=== PATIENT | female | born 1990 | race Caucasian/White ===

== ENCOUNTER 2020-04-30 14:08 | Inpatient (IN) | payer OTHER ==
[~2020-04-30] VITALS: Ht 165.1 cm; Wt 87.1 kg
--- NOTE | ~2020-04-30 | OR ---
[facility] [address] [place] [address] [place] [address] Draft DATE OF OPERATION: 05/06/2020 SURGEON: Kimberley Royal MD STRUCTURAL DRAFTSMAN: Michael Gilmore MD. PREOPERATIVE DIAGNOSES: Term , herpes simplex virus prodrome. POSTOPERATIVE DIAGNOSES: Term , herpes simplex virus prodrome, delivered. PROCEDURE: Primary section with low transverse incision. ANESTHESIA: Spinal. ESTIMATED BLOOD LOSS: 500 mL. DRAINS: Villgeas catheter. INDICATIONS AND FINDINGS: The patient is a 29-year-old female, 2, para 0, SAB 1, admitted at 39 and 4/7th weeks for primary section. The patient has had prodrome type symptoms for the last month, so no obvious outbreak. She has been on Valtrex. Given the uncertainty with the possible prodrome, she desired primary section. At the time of surgery, she was delivered of a little girl via lower segment transverse uterine incision from the ROT position with Apgars of 8 and 9 and weight of 7 pounds. The uterus, tubes, ovaries, and placenta appeared normal. DESCRIPTION OF PROCEDURE: The patient was prepped and draped in the supine position. A Pfannenstiel skin incision was then made after she was prepped and draped. The incision was carried down through the fascia. The incision was extended laterally. The inferior and superior fascial flaps were then created. The muscles were bluntly divided and the peritoneum opened sharply and the incision extended superiorly and inferiorly. The Mark retractor was PATIENT NAME: JHON WOLFE OPERATIVE REPORT DATE OF : [birth year] REPORT #: [id number] PHYSICIAN: KIMBERLEY ROYAL MD PCP: SHANE MEDINA REPORT IS CONFIDENTIAL AND NOT TO BE RELEASED WITHOUT AUTHORIZATION [facility] [address] [place], [place] [address] Draft placed. The uterine incision was made at the upper aspect of the peritoneal reflection. The baby was delivered with the above findings and handed off to the pediatric staff in attendance. Cord blood was obtained. The placenta was removed manually and the uterus explored with a lap tape assuring no remaining fragments. The edges of the incision were identified and the uterus was closed in 2 layers using 0 Monocryl. The first layer was a running locking stitch and the second was a vertical imbricating stitch. Additional [id number] was required in the center for control of bleeding. The abdomen was then copiously irrigated, inspected and bleeding points on the peritoneal edge were controlled with cautery. The retractor was removed and the peritoneum identified. An ACell graft was laid over the lower segment to aid in healing. The peritoneum was then closed with a running suture of 3-0 Vicryl. The muscles were brought together with interrupted sutures of 0 Vicryl. Bleeding points were controlled with cautery. This layer was also irrigated and inspected and hemostasis was noted. The ACell powder was sprinkled over the muscles to aid in healing. The fascia was then closed from each angle to the midline with a running suture of 0 Vicryl. The subcu space was examined and bleeding points controlled with the cautery. The deep space was closed with interrupted sutures of 3-0 Vicryl. The skin was closed with tk. All sponge and needle counts were correct. She tolerated the procedure well and was taken to the recovery room in good condition. MD JACINTO Marroquin/ALLIEL /[id number] cc: Michael Gilmore MD Copies: MICHAEL GILMORE MD ~ PATIENT NAME: JHON WOLFE OPERATIVE REPORT DATE OF : [birth year] REPORT #: [id number] PHYSICIAN: KIMBERLEY ROYAL MD PCP: SHANE MEDINA REPORT IS CONFIDENTIAL AND NOT TO BE RELEASED WITHOUT AUTHORIZATION
[~2020-04-30 14:08] MED LIST: DOXYCYCLINE HY100 MG PO; MOTRIN IB200 MG PO; PRENATAL TABLE1 EAC1 PO
--- NOTE | 2020-05-06 12:06 | NUR ---
05/06/20 1206 Sheets,Emily 1147 PT ARRIVED TO ROOM AND DENIES PAIN AND NAUSEA. SPINAL LEVEL T-6 AND PT UNABLE TO MOVE LEGS, PT DENIES SOB. IV INFUSING LR WITH 20 OF PIT, SITE WNL. FUNDAL CHECK AND SPINAL LEVEL EDUCATION GIVEN.
--- NOTE | 2020-05-07 07:53 | PR ---
[facility] [address] [facility] [place], [place] [address] Signed PP Progress Notes Datetime Report Generated by CPJessika: 05/07/2020 07:52 SUBJECTIVE: [id number] Pain: Within Normal Limits Pain Comments: vertigo resolved Nausea/Vomiting: Denies Flatus: Yes Vital Signs: [id number] Vital Signs: Reviewed; Within Normal Limits EXAM: Ongoing Cardiovascular: Normal Respiratory: Normal Abdomen/Uterus: Abnormal Lochia: Normal Vulva/Perineum: Not Done Breasts: Not Done CVA Tenderness: Not Done Extremities: Normal Incision: Normal Progress: Normal Exam Comments: Abdomen has active BS. Fundus firm, NT @ U-2. IMPRESSION/PLAN/PROCEDURES: [id number] Impression: Normal Progression Other Plans: Ambulate, shower Procedures: None Progress Notes: Doing well. Will increase ambulation. Signing Physician: Kimberley Royal MD Copies: ~ *Electronically Signed* 05/07/20 0752 KIMBERLEY ROYAL MD PATIENT NAME: JHON WOLFE PROGRESS NOTE DATE OF : [birth year] PHYSICIAN: KIMBERLEY ROYAL MD RPT #: [id number] REPORT IS CONFIDENTIAL AND NOT TO BE RELEASED WITHOUT AUTHORIZATION
--- NOTE | 2020-05-08 08:40 | PR ---
[facility] [facility] [address] [facility] [place], [place] [address] Signed PP Progress Notes Datetime Report Generated by HODAN: 05/08/2020 08:40 SUBJECTIVE: [id number] Pain: Within Normal Limits Pain Comments: vertigo resolved Nausea/Vomiting: Denies Flatus: Yes Bowel Movement: Yes Vital Signs: [id number] Vital Signs: Reviewed; Within Normal Limits EXAM: Ongoing Cardiovascular: Not Done Respiratory: Not Done Abdomen/Uterus: Abnormal Lochia: Normal Vulva/Perineum: Not Done Breasts: Not Done CVA Tenderness: Not Done Extremities: Normal Incision: Normal Progress: Normal Exam Comments: Abdomen with active BS. Fundus firm, NT @ U-1. IMPRESSION/PLAN/PROCEDURES: [id number] Impression: Normal Progression Plan: Remove Andrzej; Discharge Other Plans: Ambulate, shower Procedures: None Progress Notes: Doing well. She is ready for D/C. Signing Physician: Kimberley Royal MD Copies: ~ *Electronically Signed* 05/08/20 0840 KIMBERLEY ROYAL MD PATIENT NAME: LULU WOLFECLAY NEWMAN PROGRESS NOTE DATE OF : [birth year] PHYSICIAN: KIMBERLEY ROYAL MD RPT #: [id number] REPORT IS CONFIDENTIAL AND NOT TO BE RELEASED WITHOUT AUTHORIZATION
== END 2020-05-08 12:35 | disposition home or self-care (01) | DRG 788 ==
LOC: FBC 05-06 07:45
PROVIDERS: ADMIT Obstetrics & Gynecology; ATTEND Obstetrics & Gynecology
PROC: 10D00Z1 Extraction of Products of Conception, Low, Open Approach (ICD-10-PCS; principal; 2020-05-06 10:00)
DX: O98.32 Other infections with a predominantly sexual mode of transmission complicating childbirth (principal); A60.04 Herpesviral vulvovaginitis; Z3A.39 39 weeks gestation of pregnancy; Z37.0 Single live birth; O32.2XX0 Maternal care for transverse and oblique lie, not applicable or unspecified; Z79.899 Other long term (current) drug therapy; O99.824 Streptococcus B carrier state complicating childbirth; Z91.040 Latex allergy status; Z14.1 Cystic fibrosis carrier
CPT/HCPCS: 01961; 36415; 85027; A9270; J0690; J2001; J2274; J2405; J2590; J3010; J7121